=== PATIENT | female | born 1980 | race Caucasian/White ===

== ENCOUNTER 2018-08-01 09:01 | Day surgery (SDC) | payer MEDICAID ==
[~2018-08-01] VITALS: Ht 172.7 cm; Wt 179.1 kg
[~2018-08-01 09:01] MED LIST: GABA-532 PO
[2018-08-01 09:08] VITALS: BP 138/89
[2018-08-01] MEDS ORDERED: fentaNYL/PF 50MCG/1 ML 2ML syringe ONE (09:09)
[2018-08-01] MEDS ORDERED: MIDAZolam 5mg/5ml vial ONE (09:09)
[2018-08-01] MEDS ORDERED: LIDOcaine Viscous 15ml cup ONE (09:09)
[2018-08-01] MEDS ORDERED: OMEP20CA10 PO (10:28)
[2018-08-01] MEDS ORDERED: VARE0.5T PO (10:30)
[2018-08-01 11:08] VITALS: BP 121/81
[2018-08-01 11:18] VITALS: BP 135/69
[2018-08-01 11:28] VITALS: BP 135/69
[2018-08-01 11:38] VITALS: BP 130/56
== END 2018-08-01 11:50 | disposition home or self-care (01) ==
LOC: GI LAB 09:01
PROVIDERS: ATTEND Internal Medicine Gastroenterology
DX: K29.50 Unspecified chronic gastritis without bleeding (principal); E66.01 Morbid (severe) obesity due to excess calories; K44.9 Diaphragmatic hernia without obstruction or gangrene; K22.2 Esophageal obstruction; K20.9 Esophagitis, unspecified; K31.89 Other diseases of stomach and duodenum; G47.33 Obstructive sleep apnea (adult) (pediatric); K21.9 Gastro-esophageal reflux disease without esophagitis; Z68.44 Body mass index [BMI] 60.0-69.9, adult; Z72.89 Other problems related to lifestyle; Z98.890 Other specified postprocedural states; Z79.899 Other long term (current) drug therapy
CPT/HCPCS: 43239; J2250; J3010; J7030; 99152; A4620

== ENCOUNTER 2019-08-13 14:23 | Emergency (ER) | payer MEDICAID ==
[~2019-08-13] VITALS: Ht 172.7 cm; Wt 138.0 kg
[~2019-08-13 14:23] MED LIST changes: -GABA-532 PO; +OMEP20CA15 PO; +VARE0.5T PO
[2019-08-13 14:32] VITALS: BP 159/99
[2019-08-13] MEDS ORDERED: PENI500T2 PO (15:31)
[2019-08-13] MEDS ORDERED: TRAM50TA2 PO (15:31)
== END 2019-08-13 15:57 | disposition home or self-care (01) ==
LOC: ER 14:23
DX: K08.89 Other specified disorders of teeth and supporting structures (principal); Z91.040 Latex allergy status; Z79.899 Other long term (current) drug therapy
CPT/HCPCS: 99283

== ENCOUNTER 2021-09-12 15:27 | Emergency (ER) | payer MEDICAID ==
[~2021-09-12] VITALS: Ht 175.3 cm; Wt 120.5 kg
[2021-09-12 16:20] VITALS: BP 123/76
[2021-09-12] MEDS ORDERED: HYDR-3965 PO (17:29)
== END 2021-09-12 18:07 | disposition home or self-care (01) ==
LOC: ER 15:28
DX: S80.02XA Contusion of left knee, initial encounter (principal); Z91.040 Latex allergy status; W19.XXXA Unspecified fall, initial encounter; Y93.89 Activity, other specified; Y92.89 Other specified places as the place of occurrence of the external cause; Y99.8 Other external cause status
CPT/HCPCS: 73564; 99283

== ENCOUNTER 2021-09-25 01:11 | Inpatient (IN) | payer MEDICAID ==
[~2021-09-25] VITALS: Ht 175.3 cm; Wt 120.5 kg
[~2021-09-25 01:11] MED LIST changes: +HYDR-3965 PO
[2021-09-25] MEDS ORDERED: vancomycin/NS 1 GM ADD-VANTAGE 250 ML IV ONE (03:55)
[2021-09-25] MEDS ORDERED: CefTRIAXone 2gm/D5W 50ml BAG 50 ML IV ONE (03:55)
[2021-09-25 04:47] LABS: URINE HCG NEGATIVE (NEG)
[2021-09-25] MEDS ORDERED: iohexol 300mg/ml 100ml inj. ONE (04:56)
[2021-09-25 05:03] LABS: EOSINOPHILS # (AUTO) 0.1 X10'3 (0-0.9); EOSINOPHILS % (AUTO) 1.5 % (0-6); HEMATOCRIT 37.7 % (35.0-45.0); HEMOGLOBIN 12.8 g/dl (12.0-16.0); LYMPHOCYTES # (AUTO) 1.3 X10'3 (1.1-4.8); LYMPHOCYTES % (AUTO) 33.8 % (21-51); MEAN CORPUSCULAR HEMOGLOBIN 41.4 PG (27.0-31.0); MEAN CORPUSCULAR VOLUME 121.8 FL (78-98); MEAN PLATELET VOLUME 7.3 FL (7.4-10.4); MONOCYTES # (AUTO) 0.3 X10'3 (0-0.9); MONOCYTES % (AUTO) 8.1 % (2-12); NEUTROPHILS # (AUTO) 2.1 X10'3 (1.8-7.7); NEUTROPHILS % (AUTO) 55.6 % (42-75); PLATELET COUNT 191 X10'3 (140-440); RED BLOOD COUNT 3.09 X10'6 (4.20-5.60); RED CELL DISTRIBUTION WIDTH 15.5 % (11.5-14.5); WHITE BLOOD COUNT 3.8 X10'3 (4.5-11.0)
[2021-09-25 05:35] LABS: ALANINE AMINOTRANSFERASE 86 U/L (12-78); ALBUMIN 3.1 G/DL (3.4-5.0); ALBUMIN/GLOBULIN RATIO 0.7 (1.1-1.5); ALKALINE PHOSPHATASE 281 IU/L (46-116); ANION GAP 11 (8-16); ASPARTATE AMINO TRANSFERASE 247 U/L (10-37); BLOOD UREA NITROGEN 6 MG/DL (7-18); BUN/CREATININE RATIO 11.1 (6.6-38.0); CALCIUM 8.2 MG/DL (8.5-10.1); CHLORIDE 103 MMOL/L (99-107); CREATININE 0.54 MG/DL (0.40-0.90); MAGNESIUM 1.6 MG/DL (1.5-2.4); POTASSIUM 3.6 MMOL/L (3.5-5.1); SODIUM 142 MMOL/L (135-145); TOTAL CARBON DIOXIDE 28.4 MMOL/L (24-32); TOTAL PROTEIN 7.4 G/DL (6.4-8.2); eGFR > 90 ML/MIN
[2021-09-25 05:45] LABS: GLUCOSE 85 MG/DL (70-104)
[2021-09-25] MEDS ORDERED: morphine 2 MG/ML inj. syringe IV PRN (07:35)
[2021-09-25] MEDS ORDERED: magnesium Cl slow-release 64mg tablet PO PRN (07:35)
[2021-09-25] MEDS ORDERED: magnesium hydroxide 30ml (MOM) UD suspension PO PRN (07:35)
[2021-09-25] MEDS ORDERED: potassium CL 10mEq/100ml bag 100 ML IV PRN (07:35)
[2021-09-25] MEDS ORDERED: magnesium 2GM in 50ml NS 50 ML IV PRN (07:35)
[2021-09-25] MEDS ORDERED: magnesium 4gm in 100ml NS 100 ML IV PRN (07:35)
[2021-09-25] MEDS ORDERED: potassium Cl 20 mEq SR tablet PO PRN ×2 (07:35)
[2021-09-25] MEDS: K and/or MAG REPLACEMENT MC SCH ×2 (08:00→20:00)
[2021-09-25] MEDS: docusate sod 100mg capsule PO SCH ×2 (08:00→20:41)
[2021-09-25] MEDS: enoxaparin 30mg/0.3ml syringe SQ SCH ×2 (08:19→20:42)
[2021-09-25] MEDS: normal saline 1000ml 1,000 ML IV SCH ×2 (08:19→17:35)
--- NOTE | 2021-09-25 08:33 | NUR ---
Pt eating a breakfast from home. Biskets/gravy, and pierce. +Emesis.
[2021-09-25] MEDS: ondansetron/PF 4mg/2ml inj IV PRN ×2 (08:37→09:15)
--- NOTE | 2021-09-25 08:46 | NUR ---
Pt admits to drinking 12-13 shots of vodka each evening. Stated that she feels shakey now. +Moist cough. Lungs clear. Desats to 88%. Stated that she has sleep apena.
[2021-09-25] MEDS ORDERED: dextrose 50%-water 50ml dispensing syringe IV PRN (08:50)
[2021-09-25] MEDS: LORazepam 2 mg/ml vial IV PRN ×3 (09:15→18:29)
[2021-09-25] MEDS ORDERED: NO HOME MEDS (09:23)
--- NOTE | 2021-09-25 09:28 | NUR ---
Attempted to give report to the Surgical floor. Nurse was not ready.
--- NOTE | 2021-09-25 10:16 | NUR ---
Patient in room [facility] 346A. I have received report from MAYDA SCHAEFER FROM ER and had the opportunity to ask questions and assume patient care.
--- NOTE | 2021-09-25 10:20 | NUR ---
Report given to MAYDA De Souza on the Surgical floor.
[2021-09-25 11:51] VITALS: BP 119/50
[2021-09-25] MEDS: VANCOMYCIN 1GM/200ML IVPB 200 ML IV SCH ×2 (12:57→20:42)
[2021-09-25] MEDS: thiamine 100mg/ml 2ml inj. IV SCH ×2 (14:07→20:42)
--- NOTE | 2021-09-25 18:26 | NUR ---
Problems reprioritized. Patient report given, questions answered & plan of care reviewed with MAYDA OLIVA.
[2021-09-25 19:00] VITALS: BP 126/61
[2021-09-26] VITALS: BP 120/72
[2021-09-26] MEDS: normal saline 1000ml 1,000 ML IV SCH ×3 (00:52→23:48)
[2021-09-26] MEDS: LORazepam 2 mg/ml vial IV PRN ×5 (02:28→23:48)
[2021-09-26] MEDS: VANCOMYCIN 1GM/200ML IVPB 200 ML IV SCH (04:18)
[2021-09-26] MEDS ORDERED: VANCOMYCIN LEVEL IV ONE (04:30)
[2021-09-26 04:45] LABS: ALANINE AMINOTRANSFERASE 66 U/L (12-78); ALBUMIN 2.7 G/DL (3.4-5.0); ALBUMIN/GLOBULIN RATIO 0.8 (1.1-1.5); ALKALINE PHOSPHATASE 240 IU/L (46-116); ANION GAP 6 (8-16); ASPARTATE AMINO TRANSFERASE 166 U/L (10-37); BILIRUBIN,TOTAL 1.5 MG/DL (0.1-1.0); BLOOD UREA NITROGEN 6 MG/DL (7-18); BUN/CREATININE RATIO 13.6 (6.6-38.0); CHLORIDE 104 MMOL/L (99-107); CREATININE 0.44 MG/DL (0.40-0.90); GLUCOSE 89 MG/DL (70-104); POTASSIUM 3.7 MMOL/L (3.5-5.1); SODIUM 141 MMOL/L (135-145); TOTAL CARBON DIOXIDE 31.4 MMOL/L (24-32); TOTAL PROTEIN 6.3 G/DL (6.4-8.2); eGFR > 90 ML/MIN
[2021-09-26 06:43] LABS: BASOPHILS % (AUTO) 0.8 % (0-1); EOSINOPHILS # (AUTO) 0.1 X10'3 (0-0.9); EOSINOPHILS % (AUTO) 2.7 % (0-6); HEMATOCRIT 33.8 % (35.0-45.0); HEMOGLOBIN 11.4 g/dl (12.0-16.0); LYMPHOCYTES # (AUTO) 0.7 X10'3 (1.1-4.8); LYMPHOCYTES % (AUTO) 23.8 % (21-51); MEAN CORPUSCULAR HEMOGLOBIN 41.4 PG (27.0-31.0); MEAN CORPUSCULAR HGB CONC 33.7 g/dL (33.0-36.5); MEAN CORPUSCULAR VOLUME 122.7 FL (78-98); MEAN PLATELET VOLUME 7.6 FL (7.4-10.4); MONOCYTES # (AUTO) 0.2 X10'3 (0-0.9); MONOCYTES % (AUTO) 8.1 % (2-12); NEUTROPHILS # (AUTO) 1.9 X10'3 (1.8-7.7); NEUTROPHILS % (AUTO) 64.6 % (42-75); PLATELET COUNT 141 X10'3 (140-440); RED BLOOD COUNT 2.76 X10'6 (4.20-5.60); RED CELL DISTRIBUTION WIDTH 15.8 % (11.5-14.5)
--- NOTE | 2021-09-26 06:47 | NUR ---
Patient in room [facility] 346A. I have received report from PJ OHARA and had the opportunity to ask questions and assume patient care.
[2021-09-26] MEDS: thiamine 100mg/ml 2ml inj. IV SCH ×3 (07:56→19:56)
[2021-09-26] MEDS: docusate sod 100mg capsule PO SCH ×2 (07:56→19:56)
[2021-09-26] MEDS: CefTRIAXone inj 2,000 MG in dextrose 5%-water 100 ML IV SCH (07:56)
[2021-09-26] MEDS: enoxaparin 30mg/0.3ml syringe SQ SCH ×2 (07:57→19:57)
[2021-09-26] MEDS: K and/or MAG REPLACEMENT MC SCH ×2 (08:00→19:57)
[2021-09-26] MEDS ORDERED: folic acid 1mg/0.2ml inj IV SCH (08:00)
[2021-09-26 10:18] LABS: PLATELET ESTIMATE NORMAL
[2021-09-26 11:40] VITALS: BP 116/58
[2021-09-26] MEDS: VANCOmycin 1250MG/NS 250ml Bag 250 ML IV SCH ×2 (12:51→20:07)
--- NOTE | 2021-09-26 15:29 | NUR ---
PAGER ID: [phone] MESSAGE: HI JAY LAWRENCE/346A DR LINDSAY can I order nicotine patch for her please? she smokes 1/2 pack daily. also WBC is 3.0 MAYDA Ortega
[2021-09-26] MEDS ORDERED: nicotine 14mg patch - 24hr TD ONE (15:30)
--- NOTE | 2021-09-26 18:21 | NUR ---
Problems prioritized. Patient report given, questions answered & plan of care reviewed with MAYDA LINDA
--- NOTE | 2021-09-26 18:21 | NUR ---
Patient in room [facility] 346A. I have received report from MAYDA Ortega and had the opportunity to ask questions and assume patient care.
[2021-09-26 20:00] VITALS: BP 125/65
[2021-09-26] MEDS: mag hydrox/Alum hydrox/simeth 30ml oral suspension PO PRN (20:11)
[2021-09-27] VITALS: BP 117/69
--- NOTE | 2021-09-27 02:32 | NUR ---
Patient refused 0200 am blood sugar check for ETOH withdrawal protocol; stated "I was sleeping! You guys poke me too much. I wanna sleep now"
[2021-09-27] MEDS: LORazepam 2 mg/ml vial IV PRN (02:43)
[2021-09-27] MEDS: VANCOmycin 1250MG/NS 250ml Bag 250 ML IV SCH ×3 (05:24→19:59)
[2021-09-27 06:06] LABS: BASOPHILS % (AUTO) 0.5 % (0-1); EOSINOPHILS # (AUTO) 0.1 X10'3 (0-0.9); EOSINOPHILS % (AUTO) 4.4 % (0-6); HEMATOCRIT 31.2 % (35.0-45.0); HEMOGLOBIN 10.6 g/dl (12.0-16.0); LYMPHOCYTES # (AUTO) 0.7 X10'3 (1.1-4.8); MEAN CORPUSCULAR HEMOGLOBIN 41.1 PG (27.0-31.0); MEAN CORPUSCULAR HGB CONC 33.9 g/dL (33.0-36.5); MEAN CORPUSCULAR VOLUME 121.1 FL (78-98); MEAN PLATELET VOLUME 7.8 FL (7.4-10.4); MONOCYTES # (AUTO) 0.2 X10'3 (0-0.9); MONOCYTES % (AUTO) 6.6 % (2-12); NEUTROPHILS # (AUTO) 2.1 X10'3 (1.8-7.7); NEUTROPHILS % (AUTO) 66.5 % (42-75); PLATELET COUNT 148 X10'3 (140-440); RED BLOOD COUNT 2.58 X10'6 (4.20-5.60); RED CELL DISTRIBUTION WIDTH 15.5 % (11.5-14.5); WHITE BLOOD COUNT 3.1 X10'3 (4.5-11.0)
--- NOTE | 2021-09-27 06:11 | NUR ---
Problems reprioritized. Patient report given, questions answered & plan of care reviewed with MAYDA De Souza.
[2021-09-27 06:43] LABS: ALANINE AMINOTRANSFERASE 52 U/L (12-78); ALBUMIN 2.4 G/DL (3.4-5.0); ALBUMIN/GLOBULIN RATIO 0.7 (1.1-1.5); ALKALINE PHOSPHATASE 217 IU/L (46-116); ANION GAP 7 (8-16); ASPARTATE AMINO TRANSFERASE 111 U/L (10-37); BILIRUBIN,TOTAL 0.8 MG/DL (0.1-1.0); BLOOD UREA NITROGEN 6 MG/DL (7-18); BUN/CREATININE RATIO 12.8 (6.6-38.0); CALCIUM 7.9 MG/DL (8.5-10.1); CHLORIDE 107 MMOL/L (99-107); CREATININE 0.47 MG/DL (0.40-0.90); GLUCOSE 85 MG/DL (70-104); POTASSIUM 3.6 MMOL/L (3.5-5.1); SODIUM 144 MMOL/L (135-145); TOTAL CARBON DIOXIDE 29.9 MMOL/L (24-32); TOTAL PROTEIN 5.7 G/DL (6.4-8.2); eGFR > 90 ML/MIN
--- NOTE | 2021-09-27 06:45 | NUR ---
Patient in room [facility] 346B. I have received report from ERICA. MAYDA and had the opportunity to ask questions and assume patient care.
[2021-09-27 07:00] VITALS: BP 118/85
[2021-09-27] MEDS: LORazepam 1 MG tablet PO PRN ×3 (07:56→16:33)
[2021-09-27] MEDS: enoxaparin 30mg/0.3ml syringe SQ SCH ×2 (07:56→19:58)
[2021-09-27] MEDS: docusate sod 100mg capsule PO SCH ×2 (08:00→19:57)
[2021-09-27] MEDS ORDERED: nicotine 14mg patch - 24hr TD SCH (08:00)
[2021-09-27] MEDS: K and/or MAG REPLACEMENT MC SCH ×2 (08:00→19:45)
[2021-09-27] MEDS ORDERED: LORazepam 2 mg/ml vial IV PRN (08:50)
[2021-09-27] MEDS: normal saline 1000ml 1,000 ML IV SCH ×2 (09:35→19:32)
[2021-09-27] MEDS: CefTRIAXone inj 2,000 MG in dextrose 5%-water 100 ML IV SCH (10:55)
[2021-09-27 11:00] VITALS: BP 115/78
[2021-09-27] MEDS ORDERED: VANCOMYCIN LEVEL IV ONE (12:30)
[2021-09-27] MEDS: thiamine 100mg tablet PO SCH ×2 (13:33→19:59)
[2021-09-27] MEDS: nicotine 21mg patch - 24 hr TD SCH (13:34)
[2021-09-27 18:00] VITALS: BP 135/89
--- NOTE | 2021-09-27 18:45 | NUR ---
Problems reprioritized. Patient report given, questions answered & plan of care reviewed with MAYDA CHONG.
[2021-09-27] MEDS: mag hydrox/Alum hydrox/simeth 30ml oral suspension PO PRN (20:24)
[2021-09-28] VITALS: BP 125/77
[2021-09-28] MEDS: VANCOmycin 1250MG/NS 250ml Bag 250 ML IV SCH ×3 (05:08→20:28)
[2021-09-28] MEDS: normal saline 1000ml 1,000 ML IV SCH ×2 (05:10→15:35)
[2021-09-28 06:14] LABS: BASOPHILS % (AUTO) 0.5 % (0-1); EOSINOPHILS # (AUTO) 0.1 X10'3 (0-0.9); EOSINOPHILS % (AUTO) 2.7 % (0-6); HEMATOCRIT 31.8 % (35.0-45.0); HEMOGLOBIN 10.8 g/dl (12.0-16.0); LYMPHOCYTES # (AUTO) 0.8 X10'3 (1.1-4.8); LYMPHOCYTES % (AUTO) 17.4 % (21-51); MEAN CORPUSCULAR HEMOGLOBIN 41.6 PG (27.0-31.0); MEAN CORPUSCULAR HGB CONC 34.1 g/dL (33.0-36.5); MEAN CORPUSCULAR VOLUME 122.2 FL (78-98); MEAN PLATELET VOLUME 7.6 FL (7.4-10.4); MONOCYTES # (AUTO) 0.4 X10'3 (0-0.9); NEUTROPHILS # (AUTO) 3.1 X10'3 (1.8-7.7); NEUTROPHILS % (AUTO) 71.4 % (42-75); PLATELET COUNT 161 X10'3 (140-440); RED CELL DISTRIBUTION WIDTH 15.6 % (11.5-14.5); WHITE BLOOD COUNT 4.4 X10'3 (4.5-11.0)
[2021-09-28 06:20] LABS: ALANINE AMINOTRANSFERASE 44 U/L (12-78); ALBUMIN 2.5 G/DL (3.4-5.0); ALBUMIN/GLOBULIN RATIO 0.7 (1.1-1.5); ALKALINE PHOSPHATASE 217 IU/L (46-116); ANION GAP 6 (8-16); ASPARTATE AMINO TRANSFERASE 69 U/L (10-37); BILIRUBIN,TOTAL 0.7 MG/DL (0.1-1.0); BLOOD UREA NITROGEN 4 MG/DL (7-18); CALCIUM 8.1 MG/DL (8.5-10.1); CHLORIDE 107 MMOL/L (99-107); GLUCOSE 91 MG/DL (70-104); POTASSIUM 3.4 MMOL/L (3.5-5.1); SODIUM 140 MMOL/L (135-145); TOTAL CARBON DIOXIDE 26.9 MMOL/L (24-32); TOTAL PROTEIN 5.9 G/DL (6.4-8.2); eGFR > 90 ML/MIN
[2021-09-28] MEDS: LORazepam 1 MG tablet PO PRN ×2 (06:50→13:33)
[2021-09-28] MEDS: docusate sod 100mg capsule PO SCH ×2 (07:09→20:26)
[2021-09-28] MEDS: nicotine 21mg patch - 24 hr TD SCH (07:09)
[2021-09-28] MEDS: folic acid 1mg tablet PO SCH (07:09)
[2021-09-28] MEDS: enoxaparin 30mg/0.3ml syringe SQ SCH ×2 (07:09→20:27)
[2021-09-28] MEDS: thiamine 100mg tablet PO SCH ×3 (07:09→20:25)
[2021-09-28] MEDS: K and/or MAG REPLACEMENT MC SCH ×2 (07:10→19:39)
[2021-09-28 08:00] VITALS: BP 137/85
[2021-09-28 12:00] VITALS: BP 136/87
[2021-09-28] MEDS: acetaminophen 325mg tablet PO PRN (12:10)
[2021-09-28] MEDS: morphine 2 MG/ML inj. syringe IV PRN ×2 (15:39→20:28)
--- NOTE | 2021-09-28 15:43 | NUR ---
Paged Physical Therapy Surgical Bro OHARA. RE: [facility]. Dr. Pryor called requesting patient to have PT eval today. Patient might go home tomorrow
[2021-09-28 18:00] VITALS: BP 117/81
[2021-09-28] MEDS ORDERED: potassium Cl 20 mEq SR tablet PO PRN (20:10)
[2021-09-28] MEDS ORDERED: magnesium 4gm in 100ml NS 100 ML IV PRN (20:10)
[2021-09-28] MEDS ORDERED: magnesium Cl slow-release 64mg tablet PO PRN (20:10)
[2021-09-28] MEDS ORDERED: magnesium 2GM in 50ml NS 50 ML IV PRN (20:10)
[2021-09-28] MEDS ORDERED: potassium CL 10mEq/100ml bag 100 ML IV PRN (20:10)
[2021-09-28] MEDS: potassium Cl 20 mEq SR tablet PO PRN (20:25)
[2021-09-28] MEDS: mag hydrox/Alum hydrox/simeth 30ml oral suspension PO PRN (20:40)
[2021-09-29] VITALS: BP 120/68
[2021-09-29] MEDS: normal saline 1000ml 1,000 ML IV SCH ×2 (01:35→11:57)
[2021-09-29] MEDS: potassium Cl 20 mEq SR tablet PO PRN ×2 (01:41→05:33)
[2021-09-29] MEDS: morphine 2 MG/ML inj. syringe IV PRN ×2 (01:47→11:13)
[2021-09-29] MEDS: VANCOmycin 1250MG/NS 250ml Bag 250 ML IV SCH (05:33)
[2021-09-29] MEDS: LORazepam 1 MG tablet PO PRN ×2 (05:33→07:05)
[2021-09-29 06:15] LABS: BASOPHILS % (AUTO) 0.7 % (0-1); EOSINOPHILS # (AUTO) 0.1 X10'3 (0-0.9); EOSINOPHILS % (AUTO) 2.8 % (0-6); HEMATOCRIT 33.2 % (35.0-45.0); HEMOGLOBIN 11.1 g/dl (12.0-16.0); LYMPHOCYTES % (AUTO) 20.6 % (21-51); MEAN CORPUSCULAR HGB CONC 33.6 g/dL (33.0-36.5); MEAN PLATELET VOLUME 7.4 FL (7.4-10.4); MONOCYTES # (AUTO) 0.5 X10'3 (0-0.9); MONOCYTES % (AUTO) 10.2 % (2-12); NEUTROPHILS # (AUTO) 3.1 X10'3 (1.8-7.7); NEUTROPHILS % (AUTO) 65.7 % (42-75); PLATELET COUNT 176 X10'3 (140-440); RED BLOOD COUNT 2.72 X10'6 (4.20-5.60); RED CELL DISTRIBUTION WIDTH 16.1 % (11.5-14.5); WHITE BLOOD COUNT 4.7 X10'3 (4.5-11.0)
[2021-09-29 07:00] VITALS: BP 154/106
[2021-09-29] MEDS: thiamine 100mg tablet PO SCH (07:04)
[2021-09-29] MEDS: enoxaparin 30mg/0.3ml syringe SQ SCH (07:05)
[2021-09-29] MEDS: folic acid 1mg tablet PO SCH (07:05)
[2021-09-29] MEDS: docusate sod 100mg capsule PO SCH (07:05)
[2021-09-29] MEDS: acetaminophen 325mg tablet PO PRN (07:05)
[2021-09-29] MEDS: nicotine 21mg patch - 24 hr TD SCH (07:05)
[2021-09-29 07:39] VITALS: BP 131/75
[2021-09-29] MEDS ORDERED: K and/or MAG REPLACEMENT MC SCH (08:00)
[2021-09-29] MEDS: K and/or MAG REPLACEMENT MC SCH (08:00)
[2021-09-29 08:21] LABS: ALANINE AMINOTRANSFERASE 35 U/L (12-78); ALBUMIN 2.4 G/DL (3.4-5.0); ALBUMIN/GLOBULIN RATIO 0.5 (1.1-1.5); ALKALINE PHOSPHATASE 189 IU/L (46-116); ANION GAP 10 (8-16); ASPARTATE AMINO TRANSFERASE 45 U/L (10-37); BILIRUBIN,TOTAL 0.7 MG/DL (0.1-1.0); BLOOD UREA NITROGEN 4 MG/DL (7-18); CALCIUM 8.4 MG/DL (8.5-10.1); CHLORIDE 106 MMOL/L (99-107); GLUCOSE 81 MG/DL (70-104); POTASSIUM 3.8 MMOL/L (3.5-5.1); SODIUM 140 MMOL/L (135-145); TOTAL CARBON DIOXIDE 24.2 MMOL/L (24-32); TOTAL PROTEIN 7.1 G/DL (6.4-8.2); eGFR > 90 ML/MIN
[2021-09-29] MEDS ORDERED: LORazepam 2 mg/ml vial IV PRN (08:50)
[2021-09-29] MEDS ORDERED: LORazepam 1 MG tablet PO PRN (08:50)
--- NOTE | 2021-09-29 09:13 | NUR ---
Initial: Pt admitted w/ LLE cellulitis and severe alcoholism per EMR. Currently on Regular diet w/ mostly 100% intake of meals meeting needs at this time. LBM 09/24 receiving routine colace, recommend additional bowel care if MD agreeable. No nutrition intervention implemented at this time, will continue to monitor. Recs: 1. Continue Regular diet as tolerated 2. Routine bowel care 3. Weekly wts Addendum: 09/29/21 at [address] Amended: Links added.
[2021-09-29] MEDS ORDERED: IBUP-2697 PO (13:07)
[2021-09-29] MEDS ORDERED: FOLI1TAB27 PO (13:07)
[2021-09-29] MEDS ORDERED: thiamine tablet PO (13:07)
[2021-09-29] MEDS ORDERED: PANT40TA54 PO (13:07)
[2021-09-29] MEDS ORDERED: DOXY-243 PO (13:07)
[2021-09-29] MEDS ORDERED: ACET-1008 PO (13:07)
[2021-09-29] MEDS ORDERED: NALT50TA PO (13:12)
[2021-09-30] MEDS ORDERED: thiamine 100mg tablet PO SCH (08:00)
[2021-09-30] MEDS ORDERED: folic acid 1mg tablet PO SCH (08:00)
== END 2021-09-29 13:50 | disposition home or self-care (01) | DRG 383 ==
LOC: ER 01:12 → ED HOLD 07:38 → SUR 3N 10:36
PROVIDERS: ADMIT Family Medicine; ATTEND Family Medicine
PROC: BQ2S1ZZ Computerized Tomography (CT Scan) of Left Lower Extremity using Low Osmolar Contrast (ICD-10-PCS; 2021-09-25)
PROC: 5A09357 Assistance with Respiratory Ventilation, Less than 24 Consecutive Hours, Continuous Positive Airway Pressure (ICD-10-PCS; principal; 2021-09-29)
DX: L03.116 Cellulitis of left lower limb (principal); D64.9 Anemia, unspecified; D72.819 Decreased white blood cell count, unspecified; F10.20 Alcohol dependence, uncomplicated; Z20.822 Contact with and (suspected) exposure to COVID-19; F17.210 Nicotine dependence, cigarettes, uncomplicated; M25.462 Effusion, left knee; Z91.040 Latex allergy status; Z71.6 Tobacco abuse counseling; Z71.41 Alcohol abuse counseling and surveillance of alcoholic
CPT/HCPCS: 36415; 71045; 73564; 73701; 80053; 80202; 81025; 82948; 83735; 84132; 84145; 85008; 85025; 87040; 87081; 87635; 93306; 93971; 97116; 97161; 99285; G0378; J0696; J1650; J2060; J2270; J2405; J3370; J3411; J3490; J7030; J7060; Q9967

== ENCOUNTER 2022-01-16 00:48 | Emergency (ER) | payer MEDICAID ==
[~2022-01-16] VITALS: Ht 175.3 cm; Wt 125.0 kg
[~2022-01-16 00:48] MED LIST changes: +FOLI1TAB27 PO; -HYDR-3965 PO; +NALT50TA PO; -OMEP20CA15 PO; +PANT40TA54 PO; -VARE0.5T PO; +thiamine tablet PO
[2022-01-16 00:59] VITALS: BP 116/71
== END 2022-01-16 05:16 | disposition left against medical advice (07) ==
LOC: ER 00:49
DX: R22.43 Localized swelling, mass and lump, lower limb, bilateral (principal); Z53.21 Procedure and treatment not carried out due to patient leaving prior to being seen by health care provider

== ENCOUNTER 2022-02-22 23:00 | Inpatient (IN) | payer MEDICAID ==
[~2022-02-22] VITALS: Ht 175.3 cm; Wt 150.0 kg
--- NOTE | 2022-02-22 23:57 | NUR ---
ULTRASOUND PAGED AT 0000
[2022-02-23 00:20] LABS: BASOPHILS # (AUTO) 0.1 X10'3 (0-0.2); BASOPHILS % (AUTO) 0.9 % (0-1); EOSINOPHILS # (AUTO) 0.1 X10'3 (0-0.9); HEMOGLOBIN 9.2 g/dl (12.0-16.0); LYMPHOCYTES # (AUTO) 0.9 X10'3 (1.1-4.8); LYMPHOCYTES % (AUTO) 13.2 % (21-51); MEAN CORPUSCULAR HEMOGLOBIN 49.5 PG (27.0-31.0); MEAN CORPUSCULAR HGB CONC 35.3 g/dL (33.0-36.5); MEAN CORPUSCULAR VOLUME 140.2 FL (78-98); MEAN PLATELET VOLUME 7.7 FL (7.4-10.4); MONOCYTES # (AUTO) 0.4 X10'3 (0-0.9); MONOCYTES % (AUTO) 6.2 % (2-12); NEUTROPHILS # (AUTO) 5.6 X10'3 (1.8-7.7); NEUTROPHILS % (AUTO) 78.7 % (42-75); PLATELET COUNT 230 X10'3 (140-440); RED BLOOD COUNT 1.86 X10'6 (4.20-5.60); RED CELL DISTRIBUTION WIDTH 17.7 % (11.5-14.5); WHITE BLOOD COUNT 7.1 X10'3 (4.5-11.0)
[2022-02-23 00:32] LABS: ALANINE AMINOTRANSFERASE 48 U/L (12-78); ALBUMIN 1.6 G/DL (3.4-5.0); ALKALINE PHOSPHATASE 303 IU/L (46-116); ANION GAP 15 (8-16); ASPARTATE AMINO TRANSFERASE 232 U/L (10-37); BILIRUBIN,TOTAL 14.6 MG/DL (0.1-1.0); BLOOD UREA NITROGEN 2 MG/DL (7-18); CALCIUM 7.8 MG/DL (8.5-10.1); CHLORIDE 100 MMOL/L (99-107); GLUCOSE 106 MG/DL (70-104); LIPASE 109 U/L (73-393); SODIUM 139 MMOL/L (135-145); TOTAL CARBON DIOXIDE 24.4 MMOL/L (24-32); eGFR > 90 ML/MIN
[2022-02-23 00:38] LABS: LACTIC SEPSIS 7.1 MMOL/L (0.4-2.0)
[2022-02-23 01:08] LABS: ALBUMIN/GLOBULIN RATIO 0.4 (1.1-1.5); BILIRUBIN,DIRECT 11.7 MG/DL (0-0.3); TOTAL PROTEIN 6.1 G/DL (6.4-8.2)
[2022-02-23 01:12] LABS: NUCLEATED RED BLOOD CELLS 1 /100WBC (0-0); POTASSIUM 2.5 MMOL/L (3.5-5.1); TOTAL CELLS COUNTED 100
[2022-02-23 01:13] LABS: ANISOCYTOSIS 1+; PLATELET ESTIMATE NORMAL
--- NOTE | 2022-02-23 01:13 | NUR ---
CRIT LAB VALUE K=2.5
[2022-02-23 01:14] LABS: LARGE PLATELETS FEW; POLYCHROMASIA FEW
[2022-02-23] MEDS ORDERED: POTASSIUM BICARB 20meq eff tab 20 MEQ TABLET.EFF PO STA (01:27)
--- NOTE | 2022-02-23 01:35 | NUR ---
Pt aware of the need for urine
[2022-02-23] MEDS: potassium CL 10mEq/100ml bag 100 ML IV SCH ×3 (01:40→04:06)
[2022-02-23] MEDS ORDERED: thiamine 100mg/ml 2ml inj. IV STA (02:02)
[2022-02-23] MEDS ORDERED: ondansetron/PF 4mg/2ml inj IV STA (02:02)
--- NOTE | 2022-02-23 02:11 | NUR ---
PT having episode of vomiting zofran given
[2022-02-23] MEDS ORDERED: iohexol 350MG/ML 100ml bottle IV ONE (02:23)
[2022-02-23 03:20] LABS: CLARITY,URINE CLOUDY (Clear); COLOR,URINE ORANGE (Yellow); UA COLLECTION TYPE STRAIGHT CATH
[2022-02-23 03:21] LABS: URINE HCG NEGATIVE (NEG)
[2022-02-23 03:26] LABS: BACTERIA,URINE FEW /HPF (Neg); RBC,URINE NONE SEEN /HPF (0-2); WBC,URINE NONE SEEN /HPF (0-4)
[2022-02-23 03:27] LABS: MUCUS STRANDS FEW /LPF (Neg); SQUAMOUS EPITHELIAL CELL,UR MANY /LPF (FEW)
[2022-02-23] MEDS ORDERED: SPIR50TA5 PO (04:40)
[2022-02-23] MEDS ORDERED: FURO20TA4 PO (04:40)
[2022-02-23] MEDS ORDERED: GABA300C PO (04:40)
[2022-02-23] MEDS ORDERED: ERGO500056 PO (04:40)
[2022-02-23] MEDS ORDERED: DULO30CA52 PO (04:40)
[2022-02-23] MEDS ORDERED: POTA-82 PO (04:40)
[2022-02-23] MEDS ORDERED: magnesium hydroxide 30ml (MOM) UD suspension PO PRN (05:10)
[2022-02-23] MEDS ORDERED: ondansetron/PF 4mg/2ml inj IV PRN (05:10)
[2022-02-23] MEDS ORDERED: magnesium Cl slow-release 64mg tablet PO PRN (05:10)
[2022-02-23] MEDS ORDERED: mag hydrox/Alum hydrox/simeth 30ml oral suspension PO PRN (05:10)
[2022-02-23] MEDS ORDERED: potassium CL 10mEq/100ml bag 100 ML IV PRN (05:10)
[2022-02-23] MEDS ORDERED: LORazepam 2 mg/ml vial IV PRN (05:10)
[2022-02-23] MEDS ORDERED: POTASSIUM BICARB 20meq eff tab 20 MEQ TABLET.EFF PO PRN (05:10)
[2022-02-23] MEDS ORDERED: magnesium 4gm in 100ml NS 100 ML IV PRN (05:10)
[2022-02-23] MEDS ORDERED: magnesium 2GM in 50ml NS 50 ML IV PRN (05:10)
[2022-02-23 06:12] LABS: MAGNESIUM 1.6 MG/DL (1.5-2.4)
[2022-02-23 06:16] LABS: POTASSIUM 3.2 MMOL/L (3.5-5.1)
--- NOTE | 2022-02-23 07:43 | NUR ---
Patient observed dry heeving and states she feel nauseous.
[2022-02-23] MEDS: potassium Cl 20mEq in NS 1,000 ML IV SCH ×3 (07:44→23:34)
[2022-02-23] MEDS: spironolactone 50 MG tablet PO SCH ×2 (08:00→20:00)
[2022-02-23] MEDS ORDERED: folic acid 1mg/0.2ml inj IV SCH (08:00)
[2022-02-23] MEDS ORDERED: naltrexone 50mg tablet PO SCH ×2 (08:00→14:58)
[2022-02-23] MEDS: duloxetine 30mg CAPSULE.DR PO SCH (08:00)
[2022-02-23] MEDS ORDERED: gabapentin 300mg capsule PO SCH (08:00)
[2022-02-23] MEDS: docusate sod 100mg capsule PO SCH ×2 (08:00→20:49)
[2022-02-23] MEDS: K and/or MAG REPLACEMENT MC SCH ×2 (08:00→20:00)
--- NOTE | 2022-02-23 08:00 | NUR ---
Patient given ordered PRN zofran for nausea. Patient placed on bedpan per request, however was unable to void at this time
--- NOTE | 2022-02-23 08:10 | NUR ---
Ordered PO medications held due to nausea.
[2022-02-23 08:57] LABS: URINE AMPHETAMINE SCREEN NEGATIVE (Neg); URINE BARBITUATE SCREEN NEGATIVE (Neg); URINE BENZODIAZEPINES SCREEN NEGATIVE (Neg); URINE CANNABINOID SCREEN NEGATIVE (Neg); URINE COCAINE SCREEN NEGATIVE (Neg); URINE METHADONE SCREEN NEGATIVE (Neg); URINE OPIATE SCREEN NEGATIVE (Neg); URINE PHENCYCLIDINE SCREEN NEGATIVE (Neg)
--- NOTE | 2022-02-23 09:15 | NUR ---
Patient mom at bedside.
--- NOTE | 2022-02-23 10:00 | NUR ---
Ordered Gabapentin 90,000mg, is unavailable in [facility]. Pharmacy notified and states ordered dose is incorrect.
[2022-02-23] MEDS: pantoprazole 40mg Tablet.DR PO SCH (11:01)
[2022-02-23] MEDS: folic acid 1mg/0.2ml inj IV SCH (11:02)
[2022-02-23] MEDS: multivitamins, therapeutics tablet PO SCH (11:02)
[2022-02-23] MEDS: LORazepam 2 mg/ml vial IV PRN ×2 (11:14→16:16)
[2022-02-23] MEDS: gabapentin 300mg capsule PO SCH ×2 (13:00→20:49)
[2022-02-23] MEDS ORDERED: acetaminophen 325mg tablet PO PRN (15:40)
[2022-02-24 00:37] VITALS: BP 99/50
[2022-02-24 04:06] VITALS: BP 91/42
[2022-02-24] MEDS: LORazepam 2 mg/ml vial IV PRN ×3 (05:37→12:23)
[2022-02-24] MEDS: potassium Cl 20mEq in NS 1,000 ML IV SCH ×2 (05:44→17:46)
[2022-02-24 06:00] VITALS: BP 109/62
[2022-02-24 07:43] LABS: BASOPHILS % (AUTO) 0.6 % (0-1); EOSINOPHILS # (AUTO) 0.2 X10'3 (0-0.9); EOSINOPHILS % (AUTO) 2.6 % (0-6); HEMATOCRIT 25.4 % (35.0-45.0); HEMOGLOBIN 8.6 g/dl (12.0-16.0); LYMPHOCYTES # (AUTO) 0.8 X10'3 (1.1-4.8); LYMPHOCYTES % (AUTO) 12.8 % (21-51); MEAN CORPUSCULAR HEMOGLOBIN 49.6 PG (27.0-31.0); MEAN CORPUSCULAR HGB CONC 33.9 g/dL (33.0-36.5); MEAN CORPUSCULAR VOLUME 146.1 FL (78-98); MEAN PLATELET VOLUME 7.6 FL (7.4-10.4); MONOCYTES # (AUTO) 0.4 X10'3 (0-0.9); MONOCYTES % (AUTO) 5.9 % (2-12); NEUTROPHILS # (AUTO) 4.9 X10'3 (1.8-7.7); NEUTROPHILS % (AUTO) 78.1 % (42-75); PLATELET COUNT 223 X10'3 (140-440); RED BLOOD COUNT 1.74 X10'6 (4.20-5.60); WHITE BLOOD COUNT 6.3 X10'3 (4.5-11.0)
[2022-02-24 07:51] LABS: APTT 34 SECONDS (22-32)
[2022-02-24 07:58] LABS: ALANINE AMINOTRANSFERASE 40 U/L (12-78); ALBUMIN 1.6 G/DL (3.4-5.0); ALKALINE PHOSPHATASE 266 IU/L (46-116); ANION GAP 9 (8-16); BILIRUBIN,TOTAL 16.6 MG/DL (0.1-1.0); BLOOD UREA NITROGEN 3 MG/DL (7-18); CALCIUM 7.8 MG/DL (8.5-10.1); CHLORIDE 105 MMOL/L (99-107); SODIUM 141 MMOL/L (135-145); TOTAL CARBON DIOXIDE 26.9 MMOL/L (24-32)
[2022-02-24] MEDS: K and/or MAG REPLACEMENT MC SCH ×2 (08:00→20:57)
[2022-02-24 08:01] LABS: ALBUMIN/GLOBULIN RATIO 0.4 (1.1-1.5); ASPARTATE AMINO TRANSFERASE 242 U/L (10-37); BUN/CREATININE RATIO 5.3 (6.6-38.0); CREATININE 0.57 MG/DL (0.40-0.90); GLUCOSE 92 MG/DL (70-104); TOTAL PROTEIN 5.3 G/DL (6.4-8.2); eGFR > 90 ML/MIN
[2022-02-24] MEDS: spironolactone 50 MG tablet PO SCH (09:05)
[2022-02-24] MEDS: multivitamins, therapeutics tablet PO SCH (09:05)
[2022-02-24] MEDS: pantoprazole 40mg Tablet.DR PO SCH (09:05)
[2022-02-24] MEDS: gabapentin 300mg capsule PO SCH ×3 (09:05→22:34)
[2022-02-24] MEDS: duloxetine 30mg CAPSULE.DR PO SCH (09:05)
[2022-02-24] MEDS: docusate sod 100mg capsule PO SCH (09:05)
[2022-02-24] MEDS: folic acid 1mg/0.2ml inj IV SCH (10:44)
[2022-02-24 11:00] VITALS: BP 99/46
[2022-02-24] MEDS: POTASSIUM BICARB 20meq eff tab 20 MEQ TABLET.EFF PO PRN ×3 (12:23→22:40)
[2022-02-24] MEDS ORDERED: LORazepam 2 mg/ml vial IV PRN (17:30)
[2022-02-24] MEDS: nicotine 14mg patch - 24hr TD SCH (17:48)
[2022-02-24 18:00] VITALS: BP 123/75
--- NOTE | 2022-02-24 18:30 | NUR ---
Hourly rounding completed, VSS, no signs of acute distress. pt assessed throughout shift for alcohol withdrawal symptoms, ativan given PRN. Pt requesting diet to be advanced, MD Pryor ordered to advance diet as tolerated & nicotine patch. K+ replaced per protocol. Pts mom on unit most of shift, provided update and answered all questions. Per pt's mom request, spoke to cousin Shanita as well with update as pt's mom Tre does not feel like she fully understands pt's POC. Pt currently resting comfortably in bed with at bedside, easy to arouse, no signs of acute distress.
[2022-02-24 22:00] VITALS: BP 97/57
[2022-02-24] MEDS: LORazepam 1 MG tablet PO PRN (22:34)
[2022-02-25 02:00] VITALS: BP 115/72
[2022-02-25] MEDS: potassium Cl 20mEq in NS 1,000 ML IV SCH ×2 (03:49→21:46)
[2022-02-25] MEDS: LORazepam 1 MG tablet PO PRN ×3 (03:49→12:51)
[2022-02-25] MEDS ORDERED: LORazepam 1 MG tablet PO PRN (05:10)
[2022-02-25] MEDS ORDERED: LORazepam 2 mg/ml vial IV PRN (05:10)
[2022-02-25 06:00] VITALS: BP 105/70
--- NOTE | 2022-02-25 06:00 | NUR ---
Patient in room PCU 3012. I have received report from MAYDA Paz and had the opportunity to ask questions and assume patient care.
[2022-02-25 06:41] LABS: BASOPHILS # (AUTO) 0.1 X10'3 (0-0.2); BASOPHILS % (AUTO) 0.9 % (0-1); EOSINOPHILS # (AUTO) 0.2 X10'3 (0-0.9); EOSINOPHILS % (AUTO) 2.7 % (0-6); HEMATOCRIT 25.3 % (35.0-45.0); HEMOGLOBIN 8.7 g/dl (12.0-16.0); LYMPHOCYTES % (AUTO) 13.7 % (21-51); MEAN CORPUSCULAR HEMOGLOBIN 49.6 PG (27.0-31.0); MEAN CORPUSCULAR HGB CONC 34.3 g/dL (33.0-36.5); MEAN CORPUSCULAR VOLUME 144.8 FL (78-98); MEAN PLATELET VOLUME 7.4 FL (7.4-10.4); MONOCYTES # (AUTO) 0.4 X10'3 (0-0.9); MONOCYTES % (AUTO) 5.1 % (2-12); NEUTROPHILS # (AUTO) 5.9 X10'3 (1.8-7.7); NEUTROPHILS % (AUTO) 77.6 % (42-75); PLATELET COUNT 222 X10'3 (140-440); RED BLOOD COUNT 1.75 X10'6 (4.20-5.60); WHITE BLOOD COUNT 7.6 X10'3 (4.5-11.0)
[2022-02-25 06:51] LABS: ALANINE AMINOTRANSFERASE 40 U/L (12-78); ALBUMIN 1.6 G/DL (3.4-5.0); ALKALINE PHOSPHATASE 260 IU/L (46-116); ANION GAP 9 (8-16); BILIRUBIN,TOTAL 15.3 MG/DL (0.1-1.0); BLOOD UREA NITROGEN 3 MG/DL (7-18); CALCIUM 7.9 MG/DL (8.5-10.1); CHLORIDE 104 MMOL/L (99-107); SODIUM 141 MMOL/L (135-145); TOTAL CARBON DIOXIDE 28.3 MMOL/L (24-32)
[2022-02-25 07:02] LABS: ASPARTATE AMINO TRANSFERASE 223 U/L (10-37)
[2022-02-25 07:05] LABS: ALBUMIN/GLOBULIN RATIO 0.4 (1.1-1.5); BUN/CREATININE RATIO 5.7 (6.6-38.0); CREATININE 0.53 MG/DL (0.40-0.90); GLUCOSE 74 MG/DL (70-104); POTASSIUM 4.2 MMOL/L (3.5-5.1); TOTAL PROTEIN 5.4 G/DL (6.4-8.2); eGFR > 90 ML/MIN
[2022-02-25 07:26] LABS: ANISOCYTOSIS 1+; PLATELET ESTIMATE NORMAL; POLYCHROMASIA 2+; STOMATOCYTES FEW; TARGET CELLS FEW
[2022-02-25] MEDS: gabapentin 300mg capsule PO SCH ×3 (08:10→21:46)
[2022-02-25] MEDS: folic acid 1mg/0.2ml inj IV SCH (08:10)
[2022-02-25] MEDS: nicotine 14mg patch - 24hr TD SCH (08:10)
[2022-02-25] MEDS: pantoprazole 40mg Tablet.DR PO SCH (08:11)
[2022-02-25] MEDS: K and/or MAG REPLACEMENT MC SCH ×2 (08:11→20:00)
[2022-02-25] MEDS: multivitamins, therapeutics tablet PO SCH (08:11)
[2022-02-25 11:00] VITALS: BP 98/54
[2022-02-25 15:00] VITALS: BP 93/45
[2022-02-25 18:00] VITALS: BP 109/68
--- NOTE | 2022-02-25 18:00 | NUR ---
Problems reprioritized. Patient report given, questions answered & plan of care reviewed with MAYDA Paz. Pt much more alert today, PRN ativan given as needed. Pt up to BSC, small BM this afternoon. Pt tolerating regular diet well. Pt has many family members visiting throughout shift. Spoke to pt's cousin Shanita per mom Tre' request; asking to be called by dc coordinator about possible dc to rehab and is wondering if pt needs psych eval. DC coordinator gone for the day at that time-endorsed to [employer] wicker RN to mention to day shift RN tomorrow & f/u with that.
[2022-02-25 22:00] VITALS: BP 106/58
[2022-02-26 02:00] VITALS: BP 127/79
[2022-02-26 06:49] LABS: ALANINE AMINOTRANSFERASE 41 U/L (12-78); ALBUMIN 1.7 G/DL (3.4-5.0); ALKALINE PHOSPHATASE 263 IU/L (46-116); ANION GAP 8 (8-16); ASPARTATE AMINO TRANSFERASE 205 U/L (10-37); BILIRUBIN,TOTAL 14.6 MG/DL (0.1-1.0); BLOOD UREA NITROGEN 3 MG/DL (7-18); BUN/CREATININE RATIO 4.9 (6.6-38.0); CALCIUM 8.3 MG/DL (8.5-10.1); CHLORIDE 106 MMOL/L (99-107); CREATININE 0.61 MG/DL (0.40-0.90); GLUCOSE 74 MG/DL (70-104); SODIUM 143 MMOL/L (135-145); TOTAL CARBON DIOXIDE 29.4 MMOL/L (24-32); eGFR > 90 ML/MIN
[2022-02-26 06:51] LABS: ALBUMIN/GLOBULIN RATIO 0.4 (1.1-1.5); POTASSIUM 4.2 MMOL/L (3.5-5.1); TOTAL PROTEIN 5.6 G/DL (6.4-8.2)
[2022-02-26 06:59] LABS: EOSINOPHILS # (AUTO) 0.2 X10'3 (0-0.9); HEMOGLOBIN 9.4 g/dl (12.0-16.0); MEAN CORPUSCULAR VOLUME 147.4 FL (78-98); MEAN PLATELET VOLUME 7.5 FL (7.4-10.4); MONOCYTES # (AUTO) 0.4 X10'3 (0-0.9); RED CELL DISTRIBUTION WIDTH 18.6 % (11.5-14.5)
[2022-02-26 07:00] VITALS: BP 107/69
[2022-02-26 07:02] LABS: BASOPHILS # (AUTO) 0.1 X10'3 (0-0.2); BASOPHILS % (AUTO) 0.7 % (0-1); EOSINOPHILS % (AUTO) 2.2 % (0-6); HEMATOCRIT 27.8 % (35.0-45.0); LYMPHOCYTES # (AUTO) 1.3 X10'3 (1.1-4.8); LYMPHOCYTES % (AUTO) 16.1 % (21-51); MEAN CORPUSCULAR HEMOGLOBIN 49.7 PG (27.0-31.0); MEAN CORPUSCULAR HGB CONC 33.7 g/dL (33.0-36.5); MONOCYTES % (AUTO) 5.1 % (2-12); NEUTROPHILS % (AUTO) 75.9 % (42-75); PLATELET COUNT 245 X10'3 (140-440); RED BLOOD COUNT 1.89 X10'6 (4.20-5.60); WHITE BLOOD COUNT 7.9 X10'3 (4.5-11.0)
[2022-02-26] MEDS: K and/or MAG REPLACEMENT MC SCH ×2 (07:46→20:00)
[2022-02-26] MEDS: gabapentin 300mg capsule PO SCH ×3 (08:32→22:17)
[2022-02-26] MEDS: nicotine 14mg patch - 24hr TD SCH (08:32)
[2022-02-26] MEDS: multivitamins, therapeutics tablet PO SCH (08:32)
[2022-02-26] MEDS: pantoprazole 40mg Tablet.DR PO SCH (08:32)
[2022-02-26 09:32] LABS: NUCLEATED RED BLOOD CELLS 2 /100WBC (0-0); TOTAL CELLS COUNTED 100
[2022-02-26 09:33] LABS: ANISOCYTOSIS 2+; PLATELET ESTIMATE NORMAL; POLYCHROMASIA 2+
[2022-02-26 09:34] LABS: STOMATOCYTES 3+; TARGET CELLS FEW; TEAR DROP CELLS 1+
[2022-02-26 11:00] VITALS: BP 128/89
[2022-02-26 16:50] LABS: URINE AMPHETAMINE SCREEN NEGATIVE (Neg); URINE BARBITUATE SCREEN NEGATIVE (Neg); URINE BENZODIAZEPINES SCREEN NEGATIVE (Neg); URINE CANNABINOID SCREEN NEGATIVE (Neg); URINE COCAINE SCREEN NEGATIVE (Neg); URINE METHADONE SCREEN NEGATIVE (Neg); URINE OPIATE SCREEN NEGATIVE (Neg); URINE PHENCYCLIDINE SCREEN NEGATIVE (Neg)
[2022-02-26 18:00] VITALS: BP 98/61
--- NOTE | 2022-02-26 18:30 | NUR ---
Patient in room PCU 3012. I have received report from Kiana OHARA and had the opportunity to ask questions and assume patient care.
[2022-02-26 22:00] VITALS: BP 119/86
[2022-02-26] MEDS: potassium Cl 20mEq in NS 1,000 ML IV SCH (22:16)
[2022-02-26] MEDS: furosemide 40mg/4ml inj IV SCH (22:18)
[2022-02-27 02:00] VITALS: BP 114/65
[2022-02-27] MEDS ORDERED: LORazepam 2 mg/ml vial IV PRN (05:10)
[2022-02-27] MEDS ORDERED: LORazepam 1 MG tablet PO PRN (05:10)
[2022-02-27 06:00] VITALS: BP 97/51
--- NOTE | 2022-02-27 06:40 | NUR ---
Problems reprioritized. Patient report given, questions answered & plan of care reviewed with Lincoln OHARA.
[2022-02-27 06:56] LABS: BASOPHILS % (AUTO) 0.5 % (0-1); EOSINOPHILS # (AUTO) 0.2 X10'3 (0-0.9); HEMATOCRIT 28.6 % (35.0-45.0); HEMOGLOBIN 9.5 g/dl (12.0-16.0); LYMPHOCYTES # (AUTO) 1.1 X10'3 (1.1-4.8); LYMPHOCYTES % (AUTO) 14.2 % (21-51); MEAN CORPUSCULAR HEMOGLOBIN 48.7 PG (27.0-31.0); MEAN CORPUSCULAR HGB CONC 33.3 g/dL (33.0-36.5); MEAN CORPUSCULAR VOLUME 146.2 FL (78-98); MEAN PLATELET VOLUME 7.3 FL (7.4-10.4); MONOCYTES # (AUTO) 0.4 X10'3 (0-0.9); MONOCYTES % (AUTO) 5.4 % (2-12); NEUTROPHILS # (AUTO) 6.1 X10'3 (1.8-7.7); NEUTROPHILS % (AUTO) 77.9 % (42-75); PLATELET COUNT 234 X10'3 (140-440); RED BLOOD COUNT 1.96 X10'6 (4.20-5.60); RED CELL DISTRIBUTION WIDTH 18.6 % (11.5-14.5); WHITE BLOOD COUNT 7.9 X10'3 (4.5-11.0)
[2022-02-27 07:40] LABS: ALANINE AMINOTRANSFERASE 40 U/L (12-78); ALBUMIN 1.6 G/DL (3.4-5.0); ALKALINE PHOSPHATASE 253 IU/L (46-116); ANION GAP 10 (8-16); BLOOD UREA NITROGEN 3 MG/DL (7-18); CHLORIDE 105 MMOL/L (99-107); SODIUM 143 MMOL/L (135-145); TOTAL CARBON DIOXIDE 28.3 MMOL/L (24-32)
[2022-02-27 07:41] LABS: ALBUMIN/GLOBULIN RATIO 0.4 (1.1-1.5); ASPARTATE AMINO TRANSFERASE 188 U/L (10-37); BUN/CREATININE RATIO 5.3 (6.6-38.0); CREATININE 0.57 MG/DL (0.40-0.90); GLUCOSE 74 MG/DL (70-104); POTASSIUM 3.4 MMOL/L (3.5-5.1); TOTAL PROTEIN 5.4 G/DL (6.4-8.2); eGFR > 90 ML/MIN
[2022-02-27] MEDS: K and/or MAG REPLACEMENT MC SCH ×2 (08:00→21:36)
[2022-02-27] MEDS ORDERED: thiamine 100mg tablet PO SCH (08:00)
--- NOTE | 2022-02-27 08:24 | NUR ---
Initial: Pt admitted w/ metabolic encephalopathy and hepatic failure secondary to alcoholism per EMR; reportedly consumes 1 gallon of vodka daily per MD note. Currently on Regular diet since 02/25 w/ avg intake 50% of meals partially meeting needs. Pt could benefit from Ensure Enlive BID to assist w/ meeting needs. LBM 02/26. Will continue to monitor and make recommendations as appropriate. Recs; 1. Continue Regular diet as tolerated 2. Ensure Enlive BIDBD; pending MD verification 3. Routine thiamine, folic acid, MVI for EtOH 4. Consider additional Vit B12 if MD agreeable 5. Bowel care per rx 6. Weekly wts Addendum: 02/27/22 at [address] Amended: Links added.
[2022-02-27] MEDS: gabapentin 300mg capsule PO SCH ×3 (08:25→21:47)
[2022-02-27] MEDS: multivitamins, therapeutics tablet PO SCH (08:25)
[2022-02-27] MEDS: furosemide 40mg/4ml inj IV SCH ×2 (08:25→21:48)
[2022-02-27] MEDS: pantoprazole 40mg Tablet.DR PO SCH (08:25)
[2022-02-27] MEDS: folic acid 1mg tablet PO SCH (08:25)
[2022-02-27] MEDS: nicotine 14mg patch - 24hr TD SCH (08:33)
[2022-02-27 11:00] VITALS: BP 110/69
[2022-02-27] MEDS: thiamine 100mg tablet PO SCH ×2 (13:37→21:48)
[2022-02-27 15:00] VITALS: BP 108/71
[2022-02-27] MEDS: lactose-reduced food (Ensure Enlive) - 237ml bottle PO SCH (17:48)
[2022-02-27 18:00] VITALS: BP 102/53
--- NOTE | 2022-02-27 18:40 | NUR ---
Patient in room PCU 3012. I have received report from Lincoln OHARA and had the opportunity to ask questions and assume patient care.
--- NOTE | 2022-02-27 19:00 | NUR ---
Patient has muffins and cookies on tray table and has drank half of the protein shake thus far Addendum: 02/28/22 at 0017 by Natalie Elmore RN Amended: Links added.
[2022-02-27] MEDS ORDERED: potassium Cl 40MEQ/1/2NS 520ml 520 ML IV PRN ×2 (21:35)
[2022-02-27] MEDS ORDERED: potassium Cl 20 mEq SR tablet PO PRN ×3 (21:35)
[2022-02-27] MEDS ORDERED: magnesium Cl slow-release 64mg tablet PO PRN (21:35)
[2022-02-27] MEDS ORDERED: potassium CL 10mEq/100ml bag 100 ML IV PRN (21:35)
[2022-02-27] MEDS ORDERED: magnesium 4gm in 100ml NS 100 ML IV PRN (21:35)
[2022-02-27 22:00] VITALS: BP 105/65
[2022-02-27] MEDS: potassium Cl 20 mEq SR tablet PO PRN (22:07)
[2022-02-28] MEDS: potassium Cl 20mEq in NS 1,000 ML IV SCH (00:32)
[2022-02-28 02:00] VITALS: BP 95/59
[2022-02-28] MEDS: potassium Cl 20 mEq SR tablet PO PRN (02:31)
[2022-02-28 06:00] VITALS: BP 96/66
--- NOTE | 2022-02-28 06:30 | NUR ---
Problems reprioritized. Patient report given, questions answered & plan of care reviewed with Lincoln OHARA.
[2022-02-28] MEDS ORDERED: levoTHYROXINE 25mcg tablet PO SCH (07:00)
[2022-02-28 07:49] LABS: BASOPHILS % (AUTO) 0.5 % (0-1); EOSINOPHILS # (AUTO) 0.1 X10'3 (0-0.9); EOSINOPHILS % (AUTO) 1.1 % (0-6); HEMOGLOBIN 9.9 g/dl (12.0-16.0); LYMPHOCYTES % (AUTO) 12.8 % (21-51); MEAN CORPUSCULAR HEMOGLOBIN 48.9 PG (27.0-31.0); MEAN CORPUSCULAR VOLUME 143.6 FL (78-98); MEAN PLATELET VOLUME 7.6 FL (7.4-10.4); MONOCYTES # (AUTO) 0.4 X10'3 (0-0.9); MONOCYTES % (AUTO) 5.6 % (2-12); NEUTROPHILS # (AUTO) 6.3 X10'3 (1.8-7.7); PLATELET COUNT 207 X10'3 (140-440); RED BLOOD COUNT 2.02 X10'6 (4.20-5.60); RED CELL DISTRIBUTION WIDTH 17.9 % (11.5-14.5); WHITE BLOOD COUNT 7.9 X10'3 (4.5-11.0)
[2022-02-28] MEDS ORDERED: cyanocobalamin 500mcg tablet PO SCH (08:00)
[2022-02-28] MEDS: K and/or MAG REPLACEMENT MC SCH (08:00)
[2022-02-28] MEDS: nicotine 14mg patch - 24hr TD SCH (08:03)
[2022-02-28] MEDS: thiamine 100mg tablet PO SCH ×2 (08:04→13:00)
[2022-02-28] MEDS: pantoprazole 40mg Tablet.DR PO SCH (08:04)
[2022-02-28] MEDS: gabapentin 300mg capsule PO SCH ×2 (08:04→13:00)
[2022-02-28] MEDS: folic acid 1mg tablet PO SCH (08:04)
[2022-02-28] MEDS: furosemide 40mg/4ml inj IV SCH (08:04)
[2022-02-28] MEDS: multivitamins, therapeutics tablet PO SCH (08:05)
[2022-02-28] MEDS: lactose-reduced food (Ensure Enlive) - 237ml bottle PO SCH ×2 (08:05→09:53)
[2022-02-28 08:27] LABS: ALANINE AMINOTRANSFERASE 37 U/L (12-78); ALBUMIN 1.7 G/DL (3.4-5.0); ALKALINE PHOSPHATASE 243 IU/L (46-116); ANION GAP 13 (8-16); BILIRUBIN,TOTAL 14.8 MG/DL (0.1-1.0); BLOOD UREA NITROGEN 3 MG/DL (7-18); CALCIUM 7.8 MG/DL (8.5-10.1); CHLORIDE 103 MMOL/L (99-107); SODIUM 146 MMOL/L (135-145); TOTAL CARBON DIOXIDE 30.3 MMOL/L (24-32)
[2022-02-28 08:33] LABS: ANISOCYTOSIS 1+; PLATELET ESTIMATE NORMAL; STOMATOCYTES 1+
[2022-02-28 08:34] LABS: POLYCHROMASIA 1+
[2022-02-28 09:29] LABS: ALBUMIN/GLOBULIN RATIO 0.5 (1.1-1.5); ASPARTATE AMINO TRANSFERASE 181 U/L (10-37); BUN/CREATININE RATIO 5.1 (6.6-38.0); CREATININE 0.59 MG/DL (0.40-0.90); GLUCOSE 77 MG/DL (70-104); TOTAL PROTEIN 5.4 G/DL (6.4-8.2); eGFR > 90 ML/MIN
--- NOTE | 2022-02-28 09:55 | NUR ---
CRITICAL LAB REPORTED TO PRIMARY RN
[2022-02-28 11:00] VITALS: BP 101/58
[2022-02-28 12:39] LABS: HBSAG SCREEN Negative (Negative); HEP A AB, IGM Negative (Negative)
[2022-02-28] MEDS ORDERED: NICO-631 TD (13:04)
[2022-02-28] MEDS ORDERED: LEVO50TA8 PO (13:04)
[2022-02-28] MEDS ORDERED: CYAN500T71 PO (13:04)
[2022-02-28 15:00] VITALS: BP 118/44
--- NOTE | 2022-02-28 17:56 | NUR ---
patient had walker ordered to be delivered here prior to to discharge. walker never arived, contacted and left voice message with [employer] at 1630 asking about status of walker, no answer. Gave patient the option to go home without it and have delivered to home tomorrow or stay until tomorrow for delivery here. She chose to leave tonight. SHe is dicharging to [facility], Case managament paged with [facility] address to have delivered to, will call and leave message on [employer] voice mail as well.
--- NOTE | 2022-02-28 17:56 | NUR ---
Nicol malhotra rm [id number] lele never delivered please contact [employer] and deliver to [phone] [phone]
[2022-03-02 10:53] LABS: HEPATITIS C ANTIBODY Negative
== END 2022-02-28 18:20 | disposition home health service (06) | DRG 280 ==
LOC: ER 23:00 → ED HOLD 02-23 05:10 → EDBEDREQ 02-23 23:02 → PCU 3S 02-24 00:15
PROVIDERS: ADMIT Internal Medicine; ATTEND Internal Medicine
PROC: BW211ZZ Computerized Tomography (CT Scan) of Abdomen and Pelvis using Low Osmolar Contrast (ICD-10-PCS; 2022-02-23)
PROC: 5A09357 Assistance with Respiratory Ventilation, Less than 24 Consecutive Hours, Continuous Positive Airway Pressure (ICD-10-PCS; principal; 2022-02-27)
DX: K70.40 Alcoholic hepatic failure without coma (principal); K70.30 Alcoholic cirrhosis of liver without ascites; G92.8 Other toxic encephalopathy; I50.30 Unspecified diastolic (congestive) heart failure; I27.20 Pulmonary hypertension, unspecified; E46 Unspecified protein-calorie malnutrition; R16.0 Hepatomegaly, not elsewhere classified; E88.09 Other disorders of plasma-protein metabolism, not elsewhere classified; D64.9 Anemia, unspecified; E87.6 Hypokalemia; F10.239 Alcohol dependence with withdrawal, unspecified; E03.9 Hypothyroidism, unspecified; G62.9 Polyneuropathy, unspecified; K44.9 Diaphragmatic hernia without obstruction or gangrene; K57.90 Diverticulosis of intestine, part unspecified, without perforation or abscess without bleeding; F17.200 Nicotine dependence, unspecified, uncomplicated; Z98.84 Bariatric surgery status; Z91.040 Latex allergy status; Z79.899 Other long term (current) drug therapy; Z71.41 Alcohol abuse counseling and surveillance of alcoholic; Z68.42 Body mass index [BMI] 45.0-49.9, adult
CPT/HCPCS: 36415; 70450; 74178; 76700; 80053; 80074; 80305; 81001; 81025; 82140; 82248; 83605; 83690; 83735; 84132; 84443; 85007; 85008; 85025; 85610; 85730; 87081; 97161; 97530; 99285; A4615; G0378; J1940; J2060; J2405; J3411; J3480; J3490; J7030; Q9967